=== PATIENT | male | born 1960 | race Caucasian/White ===

== ENCOUNTER 2016-12-26 05:55 | Day surgery (SDC) | payer OTHER ==
[~2016-12-26] VITALS: Ht 165.1 cm; Wt 9.8 kg
[2016-12-26] VITALS (14 sets, daily range): BP systolic 113–147; BP diastolic 69–89; PULSE 64–78; RESP 16–22; Ht 165.1 cm; Wt 9.8 kg
[~2016-12-26 05:55] MED LIST: CIPR500T4 PO; HYDR-906 PO; OMEP40CA6 PO; ONDA4TAB8 PO
[2016-12-26] MEDS ORDERED: CEFAZOLIN 2 GM/50 ML (PMX) 50 ML IVPB SCH (06:00)
[2016-12-26] MEDS ORDERED: SOD CHLORIDE 0.9% 1,000 ML IV ONE (06:00)
[2016-12-26] MEDS ORDERED: BUPIVACAINE 0.25% (MPF) 30 ML INJ ONE (07:28)
[2016-12-26] MEDS ORDERED: MIDAZOLAM 1 MG/ML 2 ML INJ ONE (07:48)
[2016-12-26] MEDS ORDERED: LIDOCAINE 2% (SDV) 5 ML INJ ONE (07:48)
[2016-12-26] MEDS ORDERED: FENTAnyl 50 MCG/ML VIAL ONE ×2 (07:48→08:43)
[2016-12-26] MEDS ORDERED: PROPOFOL 20 ML ONE (07:48)
[2016-12-26] MEDS ORDERED: ROCURONIUM 50 MG INJ ONE (07:48)
[2016-12-26] MEDS ORDERED: SUCCINYLCHOLINE CHLORIDE 100 MG/5 ML SYG IV ONE (07:48)
[2016-12-26] MEDS ORDERED: CEFAZOLIN 1 GM INJ ONE (07:48)
[2016-12-26] MEDS ORDERED: HYDROmorphONE (0.2 MG/ML) 10ML SYG IV PRN ×2 (08:30)
[2016-12-26] MEDS ORDERED: METOCLOPRAMIDE 10 MG INJ ONE (08:30)
[2016-12-26] MEDS ORDERED: ONDANSETRON 4 MG INJ ONE (08:30)
[2016-12-26] MEDS ORDERED: ONDANSETRON 4 MG INJ IV PRN (08:30)
[2016-12-26] MEDS ORDERED: OXYCODONE/ACETAMINOPHEN (5/325) TAB PO PRN ×2 (08:30)
[2016-12-26] MEDS ORDERED: MEPERIDINE 25 MG INJ IV PRN (08:30)
[2016-12-26] MEDS ORDERED: FENTAnyl 50 MCG/ML VIAL IV PRN (08:30)
[2016-12-26] MEDS ORDERED: PROCHLORPERAZINE 10 MG INJ IV PRN (08:30)
[2016-12-26] MEDS ORDERED: DIPHENHYDRAMINE 50 MG INJ IV PRN (08:30)
[2016-12-26] MEDS ORDERED: KETOROLAC 30 MG INJ ONE (08:43)
[2016-12-26] MEDS ORDERED: GLYCOPYRROLATE 1 MG INJ ONE (08:43)
[2016-12-26] MEDS ORDERED: NEOSTIGMINE 3 MG/3 ML SYRINGE ONE (08:43)
--- NOTE | 2016-12-26 08:56 | RADRPT ---
PROCEDURE: XR Chest. CLINICAL INDICATION: Preop TECHNIQUE: A single AP view of the chest was obtained. COMPARISON: Chest x-ray dated 07/07/2016 FINDINGS: No focal airspace opacification, pleural effusion or pneumothorax is seen. The cardiomediastinal si lhouette is within normal limits for size. The osseous structures are unremarkable. IMPRESSION: No radiographic evidence of acute cardiopulmonary disease. RPTAT: HH .Emilia Whipple MD, MD Date Time Electronically viewed and signed by .Emilia Whipple MD, on 12/26/2016 08:55 .G/
--- NOTE | 2016-12-26 08:58 | OPR ---
Date/Time of Note Date/Time of Note DATE: 12/26/16 TIME: 08:57 Operative Report Preoperative Diagnosis symptomatic gallstones Postoperative Diagnosis same Operation/Procedure Performed lap stanislaw therapeutic injection subcutaneous Surgeon: Lynn MALDONADO Specimens gallbladder Lynn MALDONADO Dec 26, 2016 08:58
[2016-12-26] MEDS ORDERED: HYDROCODONE/APAP (5/325) TAB PO ONE (09:00)
--- NOTE | 2016-12-26 09:55 | OPR ---
DATE OF OPERATION: 12/26/2016 INDICATION: This is a 56-year-old male with symptomatic gallstones. He requests surgical excision of his gallbladder. The risks, alternatives, benefits, and personnel were discussed with the patien t. The patient expressed understanding and consented to the operation. PREOPERATIVE DIAGNOSIS: Symptomatic gallstones. POSTOPERATIVE DIAGNOSIS: Symptomatic gallstones. OPERATION: 1. Laparoscopic cholecystectomy. 2. Therapeutic [place] [address]. SURGEON: Td Roldan MD SPECIMEN: Gallbladder. COMPLICATIONS: None. ANESTHESIA: General. PROCEDURE: The patient was taken to the OR and prepped and draped in the usual sterile fashion. A surgical timeout was performed. IV antibiotics were given. An infraumbilical incision was made tra nsversely with a 15 blade. Dissection cautery was carried down to the fascia, which was divided wit h curved Garcia scissors. An 0 Vicryl U-stitch was placed into the fascia. A balloon Cassidy trocar wa s introduced. Pneumoperitoneum was established. Midepigastric 12-mm optical trocar and right upper quadrant, right upper flank 5-mm optical trocars were placed under direct visualization. Upon ini tial inspection there were adhesions to the gallbladder. The adhesions were taken down bluntly. Th e cystic duct was identified. The critical view was established. The cystic duct was divided using a 35-mm [place] vascular load stapler. The cystic artery was divided using a 35-mm [place] load va scular. The gallbladder was taken off the gallbladder bed. There was good hemostasis. The staple line was reinforced with clips. The gallbladder was retrieved using an EndoCatch bag. The ports we re removed under direct visualization. An 0 Vicryl U-stitch was tied down. The skin was closed usin g skin lucio. Local anesthesia was injected. Dry dressings were applied. Dictated By: TD TAI/RANDY Conf#: [id number] DID#: [id number]
--- NOTE | 2016-12-26 14:34 | RADRPT ---
Vent Rate: 69 bpm RR Interval: 0 msec [place] Interval: 162 msec QRS Duration: 98 msec QT Interval: 402 msec QTC Interval: 430 msec P-R-T [place]: 21 - -13 - 50 degrees Normal sinus rhythm Incomplete right bundle branch block Borderline ECG Electronically Signed By: Reyes Franco [id number]
== END 2016-12-26 11:10 | disposition home or self-care (01) ==
LOC: SDS 05:55
PROVIDERS: ATTEND Surgery
DX: K80.10 Calculus of gallbladder with chronic cholecystitis without obstruction (principal)
CPT/HCPCS: 47562; 71010; 88304; 93005; J0690; J1170; J1885; J2250; J2405; J2710; J2765; J3010; J7999

== ENCOUNTER 2018-01-26 07:46 | Day surgery (SDC) | END 2018-01-26 11:31 | disposition home or self-care (01) ==